=== PATIENT | female | born 1940 | race Caucasian/White ===

== ENCOUNTER 2018-06-26 19:29 | Emergency (ER) | payer OTHER ==
[~2018-06-26] VITALS: Ht 167.6 cm; Wt 77.1 kg
[2018-06-26] MEDS ORDERED: LISINOPRIL20 MG (20:11)
[2018-06-26] MEDS ORDERED: MONTELUKAST SOD10 MG (20:11)
[2018-06-26] MEDS ORDERED: RANITIDINE HCL300 M1 (20:11)
[2018-06-26] MEDS ORDERED: NAPR500T14 (20:12)
== END 2018-06-26 22:05 | disposition home or self-care (01) ==
LOC: ER 19:29
DX: R42 Dizziness and giddiness (principal)